=== PATIENT | female | born 1980 | race Asian ===

== ENCOUNTER 2017-06-27 20:31 | Emergency (ER) | payer OTHER ==
[2017-06-27 20:40] VITALS: BP 182/115
--- NOTE | 2017-06-27 20:42 | UC ---
Throat Pain/Nasal Coy HPI - HPI Summary HPI Summary: 37 YEAR OLD FEMALE PRESENTS WITH COMPLAINS OF COUGH, CHEST TIGHTNESS AND HEADACHE. - History of Current Complaint Chief Complaint: UCRespiratory Stated Complaint: SORE THROAT,DIFFICULTY BREATHING Time Seen by Provider: 06/27/17 20:42 Hx Last Menstrual Period: 06/17/17 - Allergies/Home Medications Allergies/Adverse Reactions: Allergies Allergy/AdvReac Type Severity Reaction Status Date / Time No Known Allergies Allergy Verified 09/05/16 11:28 PMH/Surg Hx/FS Hx/Imm Hx Previously Healthy: Yes - Surgical History Surgical History: None - Family History Known Family History: Negative: Hypertension, Diabetes Family History: Parents both alive and well - Social History Alcohol Use: Occasionally Substance Use Type: None Smoking Status (MU): Never Smoked Tobacco Review of Systems Constitutional: Negative Skin: Negative Eyes: Negative ENT: Sore Throat, Nasal Discharge, Sinus Congestion, Sinus Pain/Tenderness Respiratory: Negative Cardiovascular: Negative Gastrointestinal: Negative Genitourinary: Negative Motor: Negative Neurovascular: Negative Musculoskeletal: Negative Neurological: Negative Psychological: Negative All Other Systems Reviewed And Are Negative: Yes Physical Exam Triage Information Reviewed: Yes Vital Signs: Initial Vital Signs Temp 36.3 C 06/27/17 20:34 Pulse 122 06/27/17 20:34 Resp 18 06/27/17 20:34 BP 182/115 06/27/17 20:34 Pulse Ox 100 06/27/17 20:34 Vital Signs Reviewed: Yes Eye Exam: Normal ENT: Positive: Pharyngeal erythema, Nasal drainage, Tonsillar swelling Dental Exam: Normal Neck exam: Normal Neck: Positive: 1 Respiratory: Positive: Wheezing Cardiovascular Exam: Normal Abdominal Exam: Normal Musculoskeletal Exam: Normal Neurological Exam: Normal Psychological Exam: Normal Skin Exam: Normal Throat Pain/Nasal Course/Dx - Differential Dx/Diagnosis Provider Diagnoses: BRONCHITIS Discharge - Discharge Plan Condition: Stable Disposition: HOME Prescriptions: Albuterol HFA INHALER* [Ventolin HFA Inhaler*] 1 puff INH Q6H PRN #1 mdi PRN Reason: Wheezing Azithromyxin ANA (NF) [Z-Ana (Zithromax) 250 mg tabs #6] 2 tab PO .TODAY, THEN 1 DAILY #6 tab Methylprednisolone [Medrol Dosepak 4 MG*] 4 mg PO .SEE ANA INSTRUCTION #21 tab guaiFENesin/CODIEN 100MG-10MG* [Robitussin AC 100Mg-10Mg*] 5 ml PO Q6H PRN #120 ml MDD 20 ML PRN Reason: Cough Patient Education Materials: Pharyngitis (ED) Referrals: No Primary Care Phys,NOPCP [Medical Doctor] -
[2017-06-27] MEDS ORDERED: predniSONE TAB* 20 MG PO ONE (20:50)
[2017-06-27] MEDS ORDERED: Albuterol 2.5 MG/3 ML NEB.SOL* (0.083%) INH ONE (20:50)
[2017-06-27] MEDS ORDERED: Azithromycin TAB* 250 MG PO ONE (20:58)
== END 2017-06-27 21:17 | disposition home or self-care (01) ==
LOC: UCEAST 20:31
DX: J40 Bronchitis, not specified as acute or chronic (principal)
CPT/HCPCS: 87651; 99213; A9270-GY; G0463; J7512

== ENCOUNTER 2017-09-09 13:05 | Emergency (ER) | payer OTHER ==
[2017-09-09 14:20] VITALS: BP 144/96
[2017-09-09] MEDS ORDERED: Ketorolac INJ* 30 MG/ML 1 ML VIAL IM ONE (14:30)
--- NOTE | 2017-09-09 14:30 | UC ---
Throat Pain/Nasal Coy HPI - HPI Summary HPI Summary: 37 yo female with the onset of fever/chills/[place] and sore throat started yesterday no n/v/d - History of Current Complaint Chief Complaint: UCGeneralIllness Stated Complaint: SORE THROAT CHILLS HEADACHE COUGH Time Seen by Provider: 09/09/17 14:14 Hx Obtained From: Patient Hx Last Menstrual Period: 08/30/17 Onset/Duration: Gradual Onset, Lasting Days Severity: Moderate Pain Intensity: 6 Pain Scale Used: 0-10 Numeric Cough: None - Epiglottits Risk Factors Epiglottis Risk Factors: Negative - Allergies/Home Medications Allergies/Adverse Reactions: Allergies Allergy/AdvReac Type Severity Reaction Status Date / Time No Known Allergies Allergy Verified 09/09/17 14:02 PMH/Surg Hx/FS Hx/Imm Hx Previously Healthy: Yes Cardiovascular History: Hypertension - off her meds x 3 yrs - Surgical History Surgical History: None - Family History Known Family History: Negative: Cardiac Disease, Hypertension, Diabetes Family History: Parents both alive and well - Social History Alcohol Use: None Substance Use Type: None Smoking Status (MU): Never Smoked Tobacco Review of Systems Constitutional: Fever, Chills Skin: Negative Eyes: Negative ENT: Sore Throat Respiratory: Negative Cardiovascular: Negative Gastrointestinal: Negative Genitourinary: Negative Motor: Negative Neurovascular: Negative Musculoskeletal: Negative Neurological: Negative Psychological: Negative Is Patient Immunocompromised?: No All Other Systems Reviewed And Are Negative: Yes Physical Exam Triage Information Reviewed: Yes Appearance: Well-Appearing, No Pain Distress, Well-Nourished Vital Signs: Initial Vital Signs Temp 98.2 F 09/09/17 14:04 Pulse 89 09/09/17 14:04 Resp 18 09/09/17 14:04 BP 161/110 09/09/17 14:04 Pulse Ox 100 09/09/17 14:04 Vital Signs Reviewed: Yes Eyes: Positive: Conjunctiva Clear ENT: Positive: Hearing grossly normal, Pharyngeal erythema, TMs normal. Negative: Trismus, Muffled/hoarse voice Neck: Positive: Supple, Nontender, No Lymphadenopathy Respiratory: Positive: Lungs clear, Normal breath sounds, No respiratory distress Cardiovascular: Positive: RRR, No Murmur Musculoskeletal: Positive: ROM Intact, No Edema Neurological: Positive: Alert Psychological: Positive: Normal Response To Family Skin Exam: Normal Re-Evaluation - Re-Evaluation First Eval Re-Evaluation Time: 15:04 Change: Improved - [place] much improved Throat Pain/Nasal Course/Dx - Differential Dx/Diagnosis Provider Diagnoses: viral syndrome Discharge - Discharge Plan Condition: Stable Disposition: HOME Patient Education Materials: Pharyngitis (ED) Forms: *Work Release Referrals: [facility] [place] [facility] [Outside] (CALL TO FIND A LOCAL DOCTOR YOUR BP NEEDS TO BE FOLLOWED) Additional Instructions: REST FLUIDS TYLENOL NAPROXEN IF NEEDED
== END 2017-09-09 15:15 | disposition home or self-care (01) ==
LOC: UCEAST 13:05
DX: B34.9 Viral infection, unspecified (principal); I10 Essential (primary) hypertension
CPT/HCPCS: 87651; 99211; G0463; J1885